=== PATIENT | male | born 1995 | race Caucasian/White ===

== ENCOUNTER 2018-12-08 07:01 | Emergency (ER) | payer OTHER ==
[~2018-12-08] VITALS: Ht 167.6 cm; Wt 59.1 kg
[2018-12-08 10:59] VITALS: BP 118/67
== END 2018-12-08 11:00 | disposition home or self-care (01) ==
LOC: EMS 07:03
DX: S20.212A Contusion of left front wall of thorax, initial encounter (principal); X58.XXXA Exposure to other specified factors, initial encounter; Y93.66 Activity, soccer; Y92.89 Other specified places as the place of occurrence of the external cause; Y99.8 Other external cause status